=== PATIENT | female | born 1960 | race Caucasian/White ===

== ENCOUNTER 2017-09-03 10:22 | Emergency (ER) | payer MEDICAID ==
[~2017-09-03] VITALS: Ht 165.1 cm; Wt 101.7 kg
[~2017-09-03 10:22] MED LIST: IBUP-1223 PO; IBUP200T49 PO; None per pt; OXYC-302 PO; SERT100T PO
[2017-09-03 10:24] VITALS: BP 142/85
[2017-09-03] MEDS ORDERED: KETOROLAC 30 MG/1 ML ONE (10:52)
[2017-09-03] MEDS ORDERED: KETOROLAC 30 MG/1 ML IM ONE (11:00)
[2017-09-03] MEDS ORDERED: ONDANSETRON ODT 4 MG ONE (12:21)
[2017-09-03] MEDS ORDERED: HYDROmorphone 2 MG/ML, 1ML ONE (12:21)
[2017-09-03] MEDS ORDERED: HYDROmorphone 1 MG/ML, 1ML IM ONE (12:30)
[2017-09-03] MEDS ORDERED: ONDANSETRON ODT 4 MG PO ONE (12:30)
== END 2017-09-03 12:38 | disposition home or self-care (01) ==
LOC: ED 12:15
DX: M19.011 Primary osteoarthritis, right shoulder (principal); G56.01 Carpal tunnel syndrome, right upper limb; Z90.49 Acquired absence of other specified parts of digestive tract
CPT/HCPCS: 29260; 72050; 73030; 96372; 99284; J1170; J1885; Q0162